=== PATIENT | female | born 1985 | race Caucasian/White ===

== ENCOUNTER 2020-08-13 02:39 | Emergency (ER) | payer MEDICARE, MEDICAID ==
[~2020-08-13] VITALS: Ht 170.2 cm; Wt 68.0 kg
[2020-08-13 02:51] VITALS: BP 120/71
[2020-08-13] MEDS ORDERED: PRD20T PO (03:14)
--- NOTE | 2020-08-13 03:14 | ED Integumentary General ---
General Chief Complaint: Allergic Reaction Stated Complaint: GENERAL PAIN Nursing Triage Note: PT AMBULATE TO ROOM FS02 WITH C/O GENERALIZED SWELLING ON BODY. PT REPORTS HX OF SORIATIC ARTHRITIS. PT STATES THAT SHE JUST GOT A NEW CAT ON SAT. Source: patient Exam Limitations: no limitations History of Present Illness Date Seen by Provider: Aug 13, 2020 Time Seen by Provider: 02:55 Initial Comments Patient is a 34-year-old female with history of psoriatic arthritis who presents with diffuse swelling of both hands, wrists and feet. Symptoms began 2 days ago. Patient states she recently moved to the area and is not currently being treated by hearing instrument specialist and has been off all arthritis medications for the past several years. She is also concerned that she has a new cat and may have an allergy. She denies runny nose, sore throat, cough or skin rash. No shortness of breath wheezing. No hives or itching. No other symptoms or complaints. Timing/Duration: yesterday, changing over time Severity: moderate Location: face, hands, feet Possible Cause: other Modifying Factors: improves with other Associated Symptoms: edema (Erythema), other Allergies and Home Medications Allergies Coded Allergies: Sulfa (Sulfonamide Antibiotics) (Verified Allergy, Unknown, 08/13/20) zolpidem (Verified Allergy, Unknown, 08/13/20) Patient Home Medication List Home Medication List Reviewed: Yes Review of Systems Review of Systems Constitutional: see HPI EENTM: see HPI Respiratory: see HPI Cardiovascular: see HPI Gastrointestinal: see HPI Genitourinary: see HPI Musculoskeletal: joint pain Skin: see HPI Psychiatric/Neurological: See HPI Endocrine: See HPI Hematologic/Lymphatic: See HPI All Other Systems Reviewed Negative Unless Noted: Yes Past Ufdtykb-Xalhtk-Uyxlvd Hx Past Med/Social Hx: Reviewed Nursing Past Med/Soc Hx Patient Social History Alcohol Use: Denies Use Smoking Status: Current Everyday Smoker Type Used: Cigarettes 2nd Hand Smoke Exposure: Yes Recent Infectious Disease Expo: No Recent Hopitalizations: No Seasonal Allergies Seasonal Allergies: Yes Past Medical History Surgeries: Yes Gallbladder, Tubal Ligation Respiratory: No Cardiac: No Neurological: No Genitourinary: No Gastrointestinal: No Musculoskeletal: Yes (SORIATIC ARTHRITIS) Degenerate Disk Disease, Arthritis Endocrine: No HEENT: No Cancer: No Psychosocial: Yes Bipolar Integumentary: Yes Psoriasis Blood Disorders: No Physical Exam Vital Signs Vital Signs - First Documented 08/13/20 02:51 Temp 36.7 Pulse 83 Resp 18 B/P (MAP) 120/71 (87) O2 Delivery Room Air Capillary Refill : Less Than 3 Seconds General Appearance: WD/WN, no apparent distress HEENT: PERRL/EOMI, pharynx normal Neck: non-tender Cardiovascular: normal peripheral pulses Respiratory: lungs clear Extremities: normal range of motion, non-tender, swelling, other (Swelling and erythema of hands and wrists. 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 Steroids given. We will continue supportive care with PCP follow-up. Return precautions reviewed. Impression Primary Impression: Arthritis of both hands Disposition: HOME, SELF-CARE Condition: Stable Departure-Patient Inst. Decision time for Depature: 03:13 Referrals: NO,LOCAL PHYSICIAN (PCP/Family) Primary Care Physician Patient Instructions: Psoriatic Arthritis in Adults Add. Discharge Instructions: Please fill steroids and take as directed. Follow-up with local PCP in 3 to 5 days for reevaluation. Return to the ED if new or worsening symptoms. All discharge instructions reviewed with patient and/or family. Voiced understanding. Scripts Prednisone (Prednisone) 20 Mg Tab 40 MG PO DAILY, #6 TAB 0 Refills Prov: REN SHOOK DO 08/13/20 REN SHOOK DO Aug 13, 2020 03:14
[2020-08-13] MEDS ORDERED: predniSONE 20 MG TAB PO ONE (03:15)
== END 2020-08-13 03:23 | disposition home or self-care (01) ==
LOC: ER FS 02:43
DX: M19.042 Primary osteoarthritis, left hand (principal); M19.041 Primary osteoarthritis, right hand; F17.210 Nicotine dependence, cigarettes, uncomplicated; Z88.2 Allergy status to sulfonamides; Z88.8 Allergy status to other drugs, medicaments and biological substances
CPT/HCPCS: 99283

== ENCOUNTER 2020-09-15 16:15 | Emergency (ER) | payer MEDICARE, MEDICAID ==
[~2020-09-15] VITALS: Ht 170.1 cm; Wt 66.3 kg
[~2020-09-15 16:15] MED LIST: PRD20T PO
[2020-09-15] MEDS ORDERED: LIDOCAINE 2% VISCOUS 15 ML UDC PO STA (18:11)
--- NOTE | 2020-09-15 18:18 | ED EENT ---
History of Present Illness General Chief Complaint: Oral/Throat Problems Stated Complaint: HEADACHE;THROAT/EAR/MOUTH PAIN Nursing Triage Note: Pt presents to ER with mouth sores for 1 week. Pt c/o of hx of sores in past similar. Pt has used a mouth wash in past. Pt reports ear pain and headache Source: patient History of Present Illness Date Seen by Provider: September 15, 2020 Time Seen by Provider: 17:44 Initial Comments 34-year-old female presenting with complaints of multiple sores on her mouth for over a week. She states this has been a recurring issue in the past. She u sually is able to help by using a mouthwash. However in the last several days it has not been helping. She felt like the sores were getting worse. She has not followed up through the clinic. She was to go into work this evening but because her symptoms were so severe she came to the emergency department. She has had no fever or chills. She has had pain going into her ears and a generalized headache. She states it was hurting to swallow at times as well. She denies any fever but has had chills Timing/Duration: gradual, last week Severity: severe Location: mouth, throat Prearrival Treatment: over the counter meds Associated Symptoms: No change in hearing, No cough, No drooling, No ear drainage, No facial pain/swelling, No fever, No malaise, No nasal congestion/drainage, No poor fluid intake; poor solids intake; No sinus infection; sore throat; No tooth pain, No voice change Allergies and Home Medications Allergies Coded Allergies: Sulfa (Sulfonamide Antibiotics) (Verified Allergy, Unknown, 08/13/20) zolpidem (Verified Allergy, Unknown, 08/13/20) Home Medications Chlorhexidine Gluconate 473 Ml Mouthwash, 15 ML MM BID Prescribed by: WALDEMAR CHACON on 09/15/201824 Hydrocodone/Acetaminophen 1 Each Tablet, 1 TAB PO Q6H PRN for PAIN-SEVERE (8-10) Prescribed by: WALDEMAR CHACON on 09/15/201824 Lidocaine HCl 15 Ml Solution, 5 ML MM Q3H PRN for mouth pain Dilute with 5 mL of water and swish and spit every 3 hours as needed for pain in mouth. Prescribed by: WALDEMAR CHACON on 09/15/201824 Prednisone 20 Mg Tab, 40 MG PO DAILY Prescribed by: ERN SHOOK on 08/13/20313 Valacyclovir HCl 1,000 Mg Tablet, 2,000 MG PO Q12H Prescribed by: WALDEMAR CHACON on 09/15/201824 Patient Home Medication List Home Medication List Reviewed: Yes Review of Systems Review of Systems Constitutional: chills; No fever Eyes: No Symptoms Reported Ears: Pain; Denies Tinnitus, Denies Bloody Discharge, Denies Clear Discharge, Denies Purulent Discharge Nose: see HPI; denies epistaxis Mouth: see HPI, pain, swelling; denies bloody discharge, denies purulent discharge Throat: pain Respiratory: no symptoms reported Cardiovascular: no symptoms reported; No see HPI Gastrointestinal: no symptoms reported Musculoskeletal: no symptoms reported Skin: no symptoms reported Neurological: No Symptoms Reported Hematologic/Lymphatic: No Symptoms Reported Past Yscpydf-Rfcsgx-Lshaip Hx Past Med/Social Hx: Reviewed Nursing Past Med/Soc Hx Patient Social History Alcohol Use: Denies Use Type Used: Cigarettes 2nd Hand Smoke Exposure: Yes Recent Infectious Disease Expo: No Recent Hopitalizations: No Seasonal Allergies Seasonal Allergies: Yes Past Medical History Surgeries: Yes (Ear tubes) Gallbladder, Tubal Ligation Respiratory: No Cardiac: No Neurological: No : No Last Menstrual Period: September 01, 2020 Genitourinary: No Gastrointestinal: No Musculoskeletal: Yes (PSORIATIC ARTHRITIS) Degenerate Disk Disease, Arthritis Endocrine: No HEENT: No Cancer: No Psychosocial: Yes Bipolar Integumentary: Yes Psoriasis Blood Disorders: No Physical Exam Vital Signs Vital Signs - First Documented 09/15/20 16:35 Temp 36.1 Pulse 110 Resp 16 B/P (MAP) 106/71 (83) Pulse Ox 98 O2 Delivery Room Air Height, Weight, BMI Height: '" Weight: lbs. oz. kg; 22.00 BMI Method: General Appearance: severe distress (Patient initially sleeping but arouses easily when I entered the room. Then became very anxious and had difficulty sitting still due to the pain in her mouth and ears) Eyes: bilateral eye PERRL, bilateral eye EOMI Ears: bilateral ear auricle normal, bilateral ear canal normal, bilateral ear TM normal Mouth/Throat: pharynx normal; No dental tenderness; tongue swollen (Ulcerations noted on the tongue with some surrounding swelling), other (Ulcerations to the soft tissues. None noted in the posterior pharynx and throat) Neck: full range of motion, supple, normal inspection, lymphadenopathy (R), lymphadenopathy (L), tender lateral (Tender to lateral aspects of the neck anteriorly.) Cardiovascular: normal peripheral pulses, regular rate, rhythm Respiratory: chest non-tender, lungs clear, normal breath sounds Neurologic/Psychiatric: alert, oriented x 3 Progress/Results/Core Measures Results/Orders My Orders Orders - WALDEMAR CHACON MD Lidocaine 2% Viscous 15 Ml (Xylocaine Vi (09/15/20 18:11) Rx-Hydrocodone/Apap 5-325 Mg (Rx-Vicodin (09/15/20 18:15) Medications Given in ED Current Medications Medications Dose Ordered Sig/Halle Route Start Time Stop Time Status Last Admin Dose Admin Acetaminophen/ Hydrocodone Bitart 1 ea Q6H PRN PO 09/15/20 18:15 09/15/20 18:31 DC 09/15/20 18:16 1 EA Vital Signs/I&O 09/15/20 16:35 Temp 36.1 Pulse 110 Resp 16 B/P (MAP) 106/71 (83) Pulse Ox 98 O2 Delivery Room Air Blood Pressure Mean: 83 Progress Progress Note : Progress Note Treat the sores in the mouth with antiviral as well as order nausea medicine help keep your stomach settle down and pain medication for severe pain. Use viscous lidocaine to help with numbing her mouth and sores. Counseled to follow-up with the clinic for continued concerns. They may want to test zinc and vitamin B12 levels. Departure Impression Primary Impression: Ulceration, oral mucosa Additional Impression: Recurrent oral ulcers Disposition: 01 HOME, SELF-CARE Condition: Stable Departure-Patient Inst. Decision time for Depature: 18:26 Referrals: ERAN GUTIERREZ APRN (PCP/Family) Primary Care Physician Patient Instructions: Mouth Sores (DC) Add. Discharge Instructions: Use the anti-viral medicine to help treat for probable viral source of infection causing the mouth sores. You could try using the Viscous Lidocaine 5 mL or 1 teaspoon mixed with some water to thin it out and swish and spit every 3 hours as needed for pain. Use the Hydrocodone for severe pain. Check with clinic for follow up and they may want to do blood work to check vitamin levels such as Zinc or Vitamin B12 that can contribute to mouth sores. All discharge instructions reviewed with patient and/or family. Voiced unders tanding. Scripts Hydrocodone/Acetaminophen (Hydrocodone-Acetamin 5-325 mg) 1 Each Tablet 1 TAB PO Q6H PRN for PAIN-SEVERE (8-10) for 3 Days, #12 TAB 0 Refills Prov: WALDEMAR CHACON MD 09/15/20 Valacyclovir HCl (Valacyclovir) 1,000 Mg Tablet 2000 MG PO Q12H for oral ulcers for 1 Day, #4 TAB 0 Refills Prov: WALDEMAR CHACON MD 09/15/20 Chlorhexidine Gluconate (Periogard) 473 Ml Mouthwash 15 ML MM BID for oral ulcers for 10 Days, #473 ML 0 Refills Prov: WALDEMAR CHACON MD 09/15/20 Lidocaine HCl (Lidocaine HCl Viscous) 15 Ml Solution 5 ML MM Q3H PRN for mouth pain for 2 Days, #100 ML 0 Refills Dilute with 5 mL of water and swish and spit every 3 hours as needed for pain in mouth. Prov: WALDEMAR CHACON MD 09/15/20 Work/School Note: Work Release Form Date Seen in the Emergency Department: September 15, 2020 Return to Work: Sep 19, 2020 Restrictions: No Restrictions WALDEMAR CHACON MD September 15, 2020 18:18
[2020-09-15] MEDS ORDERED: ACHD5005 PO (18:25)
[2020-09-15] MEDS ORDERED: LIDO20SO23 MM (18:25)
[2020-09-15] MEDS ORDERED: CHLO473M2 MM (18:25)
[2020-09-15] MEDS ORDERED: VALA10007 PO (18:25)
[2020-09-15 18:30] VITALS: BP 106/71
== END 2020-09-15 18:30 | disposition home or self-care (01) ==
LOC: EDUNIT# 16:15 → ER FS 16:17
DX: K12.0 Recurrent oral aphthae (principal); Z77.22 Contact with and (suspected) exposure to environmental tobacco smoke (acute) (chronic)
CPT/HCPCS: 99282